=== PATIENT | male | born 1995 | race Caucasian/White ===

== ENCOUNTER 2025-02-11 19:45 | Emergency (ER) | payer BC, SELFPAY ==
[2025-02-11 19:50] VITALS: BP 138/85; PULSE 95; RESP 16; TEMP 36.4; O2SAT 96; BMI 41.1
--- NOTE | 2025-02-11 20:15 | ED.GENADULT ---
HPI - General Adult General Chief complaint: Unspecified Complaint, Adult Stated complaint: cyst Time Seen by Provider: 02/11/25 19:57 History of Present Illness HPI narrative: Patient is a 29-year-old gentleman who has a history of pilonidal cyst resection 6 years ago who presents with painful lump on the superior aspect of his buttocks. The lump is a somewhat linear and just to the right of midline in the superior gluteal cleft. He has had no systemic symptoms of fevers chills night sweats. He has had no skin breakdown but has a number of acne lesions on his buttocks as well. tried to poke with a pin tonight and was unable to get any drainage. Patient has had luck in the past with hot baths and showers but that has been ineffective. Patient knows that he likely needs antibiotics and surgery consult. Related Data Allergies Allergy/AdvReac Type Severity Reaction Status Date / Time No Known Drug Allergies Allergy Verified 02/11/25 19:56 Review of Systems Status of ROS: Reports: 10 or more systems reviewed and unremarkable except as noted in History and below Exam Narrative: Exam Narrative: EXAM GENERAL: Patient appears comfortable and well. EYES: No scleral icterus. ENT: Tympanic membranes and oropharynx normal. THYROID: no thyroid nodules or thyromegaly. LYMPH: No supraclavicular or cervical lymphadenopathy. SKIN: I do note a 3 x 6 cm area of induration as described above in the right gluteal cleft. EXT: No dependent lower extremity pedal edema. HEART: Regular rate and rhythm with no murmurs, rubs, or gallops. LUNGS: Clear to auscultation bilaterally with no crackles or wheezes. ABD: Soft, non tender, non distended. PSYCH: Good eye contact, speech is not pressured. Const: Vital Signs, click to edit/add: Vital Signs - 24 hr 02/11/25 19:50 Temperature 97.5 F L Pulse Rate [Left P ulse Oximeter] 95 Respiratory Rate 16 Blood Pressure [Ri ght Upper Arm] 138/85 Pulse Oximetry 96 Oxygen Delivery Me thod Room Air Course Course ED Course: Patient seen and examined. I did placement Keflex and recommended surgery follow-up this week which will help him schedule. Continue warm compresses in the meantime and follow-up as we discussed. Tylenol Motrin as well. Vital Signs Vital signs: Initial Vital Signs Temperature 97.5 F L 02/11/25 19:50 Temperature Source Temporal Artery Scan 02/11/25 19:50 Pulse Rate 95 02/11/25 19:50 Pulse Rhythm Regular 02/11/25 19:50 Respiratory Rate 16 02/11/25 19:50 Blood Pressure 138/85 02/11/25 19:50 Blood Pressure Mean 102 02/11/25 19:50 Blood Pressure Position Sitting 02/11/25 19:50 Pulse Oximetry 96 02/11/25 19:50 Oxygen Delivery Method Room Air 02/11/25 19:50 Vital Signs Temperature 97.5 F L 02/11/25 19:50 Pulse Rate 95 02/11/25 19:50 Respiratory Rate 16 02/11/25 19:50 Blood Pressure 138/85 02/11/25 19:50 Pulse Oximetry 96 02/11/25 19:50 Oxygen Delivery Method Room Air 02/11/25 19:50 Temperature 97.5 F L 02/11/25 19:50 Pulse Rate 95 02/11/25 19:50 Respiratory Rate 16 02/11/25 19:50 Blood Pressure 138/85 02/11/25 19:50 Pulse Oximetry 96 02/11/25 19:50 Oxygen Delivery Method Room Air 02/11/25 19:50 Discharge Plan Discharge Clinical Impression: Chronic recurrent pilonidal cyst Patient Disposition: Home, Self-Care Condition: Stable Instructions: Pilonidal Cyst (ED) Additional Instructions: Keflex as directed Tylenol Motrin Warm soaks Follow-up with general surgery next week as scheduled. Activity Level: No Restrictions Discharge Diet: Regular Stand Alone Forms: MyHealth Info Instructions
--- OUTSIDE RECORDS SUMMARY | 2025-02-11 20:29 | XMS_ITS | Clinical Summary ---
Author Organization [facility] Address [address] [place] [address]. 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 05/28/2020 Pilonidal abscess 05/16/2019 Overview (03/25/2021): Added automatically from request for surgery [id number] Immunizations Immunization Administration Dates Next Due COVID-19 MONOVALENT 12+ (Pfizer) 04/12/2021,02/26 Comvax (HIB/HepB) 1998,03/09/1998,01/08/19 98 DTAP (<7y) 12/28/2001, 9,05/08/1998,1997,01/08/1998 HIB (PRP-T) 1998,03/09/1998,01/08/1998 HPV9 (Gardasil) 04/26/2021 Hepatitis B, Peds (Engerix-B/Recombivax HB) 1998,03/09/1998,01/08/1998 Influenza Vaccine >6 months,quad, PF 04/20/2019 MMR (MMRII) 05/05/2002,1998 Poliovirus, inactivated (IPV) 12/28/2001 ,1998,03/09/1998,1997 TD,PF 7+ (Tenivac) 03/25/2021 TDAP (Adacel,Boostrix) 03/13/2010 Varicella (Varivax) 03/13/2010,02/07/1999 Family History Medical History Relation Comments Mental Illness Brother Schizophrenia Brother Arthritis Father Relation Status Comments Brother Father Social History Tobacco Use Types Packs/Day Years Used Date Smoking Tobacco: Never Smokeless Tobacco: Never Tobacco Cessation:Counseling Given: No Alcohol Use Standard Drinks/Week Comments Yes 0 (1 standard drink = 0.6 oz pur e alcohol) socail PHQ-2 Answer Date Recorded PHQ-2 Score 0 03/25/2021 Adolescent Education Answer Date Record ed Getting School Help Needed Not on file 04/18 Sex and Gender Information Value Date Recorded Sex Assigned at Male 02/22/2021 3:15 PM CDT Legal Sex Male 2:52 PM MASTER MERCHANDISER Gender Identity Male 02/22/2021 3:15 PM CDT Sexual Orientation Choose not to disclose 2020 3:15 PM CDT Last Filed Vital Signs Vital Sign Reading Time Taken Comments Blood Pressure 118/71 06/10/2021 8:45 AM MASTER MERCHANDISER Pulse 80 06/10/2021 8:45 AM MASTER MERCHANDISER Temperature 36.3 C (97.4 F) 12/03/2020 5:57 PM CDT Respiratory Rate - - Oxygen Saturation 99% 06/10/2021 8:45 AM MASTER MERCHANDISER Inhaled Oxygen Concentration - - Weight 121.8 kg (268 lb 8 oz) 03/25/2021 10:05 A M CDT Height 182.9 cm (6') 03/25/2021 10:05 AM CDT Body Mass Index 36.42 03/25/2021 10:05 AM CDT Plan of Treatment Health Maintenance Due Date Last Done Comments ADVANCE CARE PLANNING 1997 HPV VACCINE (2 - Male 3-dose series) 05/24/2021 04/26/2021 ANNUAL REVIEW OF HM ORDERS 03/25/2022 03/25/2021 YEARLY PREVENTIVE VISIT 03/25/2022 03/25/2021 COVID-19 VACCINE (3 - season) 2024 04/12/2021, 03/25/2021 INFLUENZA VACCINE (#1) 2025 04/20/2019 DTAP/TDAP/TD VACCINE (8 - Td or Tdap) 03/25/2031 03/25/2021, 03/13/2010, 12/28/2001, Additional history exists ZOSTER VACCINE (1 of 2) 11/07/2047 HEPATITIS B VACCINE Completed 1998, 1998, 03/09/1998, Additional history exists HEPATITIS C SCREENING Completed 05/06/2021 HIV SCREENING Completed 05/06/2021 MENINGITIS VACCINE Aged Out No longer eligible based on patient's age to complete this topic PNEUMOCOCCAL VACCINE: PEDIATRICS (0 to 5 YEARS) AND AT-RISK PATIENTS (6 to 49 YEARS) Aged Out No longer eligible based on patient's age to complete this topic Procedures Procedure Name Priority Date/Time Associated Diagnosis Comments HIV ANTIGEN ANTIBODY COMBO Routine 05/06/2021 8:16 AM CDT Screen for STD (sexually transmitted disease) HEPATITIS C ANTIBODY Routine 05/06/2021 8:15 AM CDT Screen for STD (sexually transmitted disease) from Last 3 Months or Most Recently Relevant to Health Maintenance Results * HIV Antigen Antibody Combo (05/06/2021 8:16 AM CDT) HIV Antigen Antibody Combo Negative Negative 05/06/2021 3:59 PM CDT [facility] Blood STRUCTURE OF LEFT UPPER LIMB / Unknown Venipuncture / Unknown 05/06/2021 8:16 AM CDT 05/06/2021 8:16 AM CDT us La Romero MD LAB - BLOOD ORDERABLES Final R esult O [facility] [address] [place] [address], [facility] [phone] * Hepatitis C antibody (05/06/2021 8:15 AM CDT) Hepatitis C Antibody Negative Negative 05/06/2021 4:11 PM CDT [facility] Blood STRUCTURE OF LEFT UPPER LIMB / Unknown Venipuncture / Unknown 05/06/2021 8:15 AM CDT 05/06/2021 8:16 AM CDT Narrative [facility] - 05/06/2021 4:11 PM CDT Assay performance characteristics have not been established for newborns, infants, children (<18 years) or populations of immunocompromised or immunosuppressed patients. La Romero MD LAB - BLOOD ORDERABLES Final R esult [facility] [address] [place] [address], [facility] [phone] from Last 3 Months or Most Recently Relevant to Health Maintenance Insurance [facility] Care Teams Snuff Blender Relationship Specialty Start Date End Date La Romero MD [address] [place] [address] PCP - General Internal Medicine 03/25/21 La Romero MD [address] [place] [address] Referring Physician Internal Medicine 03/28/21 Destini Gaytan PA-C [address] [place] [address] [place] [address] Physician Assistant Maintenance Manager Dermatology 03/28/21 Juvenal Pierre MD [address] [place] [address] Dermatology 05/12/22
--- OUTSIDE RECORDS SUMMARY | 2025-02-11 20:29 | XMS_ITS | Encounter Summary ---
Author Organization [facility] Address [address] [place] [address]. [place] [address] Care Team Providers Care Cap Cutter Name Role Phone La Romero MD Primary Care Provider [phone] La Romero MD Unavailable [phone] Destini Gaytan PA-C Unavailable [phone] La Romero MD Unavailable [phone] Juvenal Pierre MD Unavailable La Romero MD Unavailable [phone] Encounter Details Date Type Department Care Team (Late st Contact Info) Description 06/11/2021 MyC Medical Advice [address] [address] Destini Gaytan PA-C [address] [facility] [place] [address] Social History Tobacco Use Types Packs/Day Years Used Date Smoking Tobacco: Never Smokeless Tobacco: Never Alcohol Use Standard Drinks/Week Comments Yes 0 (1 standard drink = 0.6 oz pur e alcohol) socail PHQ-2 Answer Date Recorded PHQ-2 Score 0 03/25/2021 Sex and Gender Information Value Date Recorded Sex Assigned at Male 02/22/2021 3:15 PM CDT Legal Sex Male 2:52 PM AUDIO ENGINEER Gender Identity Male 02/22/2021 3:15 PM CDT Sexual Orientation Choose not to disclose 2020 3:15 PM CDT COVID-19 Exposure Response Date Recorded In the last month, have you been in contact with someone who was confirmed or suspected to have Coronavirus / COVID-19? No / Unsure 06/10/2021 8:43 AM AUDIO ENGINEER documented as of this encounter Plan of Treatment Not on file documented as of this encounter Visit Diagnoses Not on filedocumented in this encounter Care Teams Cap Cutter Relationship Specialty [place] [address] [place] [address] PCP - General Internal Medicine 03/25/21 [place] [address] [place] [address] Referring Physician Internal Medicine 03/28/21 Destini Gaytan PA-C [address] [place] [address] [place] [address] Physician Sight Effects Specialist Dermatology 03/28/21 [place] [address] [place] [address] Assigned PCP 02/28/21 07/11/22 Juvenal Pierre MD [address] [place] [address] Dermatology 05/12/22 [place] [address] [place] [address] Assigned PCP 09/20/22 06/17/24 documented as of this encounter
--- OUTSIDE RECORDS SUMMARY | 2025-02-11 20:29 | XMS_ITS | Encounter Summary ---
Author Organization [facility] Address [address] [place] [address] Care Team Providers Care Metal Finisher Name Role Phone No Primary/Referring, Phy Primary Care Provider Unavailable Encounter Details Date Type Department Care Team (Late st Contact Info) Description 05/17/2019 Consent for Procedure/Treatme nt [facility] INFORMED CONSENT RECORD Social History Tobacco Use Types Packs/Day Years Used Date Smoking Tobacco: Never Smokeless Tobacco: Never Alcohol Use Standard Drinks/Week Comments Yes 0 (1 standard drink = 0.6 oz pur e alcohol) social Sex and Gender Information Value Date Recorded Sex Assigned at Not on file Legal Sex Male 2:32 PM CDT Gender Identity Not on file Sexual Orientation Not on file 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
--- OUTSIDE RECORDS SUMMARY | 2025-02-11 20:29 | XMS_ITS | Encounter Summary ---
Author Organization [facility] Address [address] [place] [address] Care Team Providers Care Cardiac Rn Name Role Phone No Primary/Referring, Phy Primary Care Provider Unavailable Encounter Details Date Type Department Care Team (Late st Contact Info) Description 10/21/2017 Scanned History External to Transferred Record, Provider [facility] Social History Tobacco Use Types Packs/Day Years Used Date Smoking Tobacco: Never Assessed Sex and Gender Information Value Date Recorded Sex Assigned at Not on file Legal Sex Male 2:32 PM CDT Gender Identity Not on file Sexual Orientation Not on file documented as of this encounter Plan of Treatment Not on file documented as of this encounter Visit Diagnoses Not on filedocumented in this encounter Care Teams Cardiac Rn Relationship Specialty Start Date End Date No Primary/Referring, Phy PCP - General 05/16/19 documented as of this encounter
--- OUTSIDE RECORDS SUMMARY | 2025-02-11 20:29 | XMS_ITS | Clinical Summary ---
Author Organization [facility] Address [address] [place] [address] Care Team Providers Care Wool Cleaner Name Role Phone No Primary/Referring, Phy Primary Care Provider Unavailable Source Comments You are receiving this document as you are listed as the primary care provider,follow-up provider, or the patient has been referred to you for consultation.This is in compliance with the Medicare and[facility] EHR Incentive Program,which states Providers who transition their patient to another setting of careor provider of care or refers their patient to another provider of care shouldprovide summary care record for each transition of care or referral. [email or web address] Allergies No known active allergies Medications FLUoxetine (PROZAC) 40 MG capsule Take 1 Capsule by mouth daily for 60 days. 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 05/28/2020 Pilonidal abscess 05/16/2019 Overview (05/17/2019): Added automatically from request for surgery [id number] Immunizations Immunization Administration Dates Next Due DTaP 12/28/2001, 9,05/08/1998,1997,01/08/1998 HepB Ped/Adol (0-18 yrs) 1998,03/09/1998,0 01/08/1998 Hib (ActHIB) 1998,03/09/1998,01/08/1998 IPV (Polio) 12/28/2001, 9,03/09/1998,1997 Influenza IIV4 (Quadrivalent ) 0.5mL ([id number]) 04/20/2019 MMR 05/05/2002,1998 Tdap 03/13/2010 Varicella 03/13/2010,02/07/1999 Family History Relation Name Status Comments Father Alive Mother Alive Brother 1 Alive Brother 2 Alive Maternal Grandfather Alive Maternal Grandmother Alive Paternal Grandfather Alive Paternal Grandmother Alive Social History Tobacco Use Types Packs/Day Years [...] 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 Not on file Not on file Last Filed Vital Signs Vital Sign Reading Time Taken Comments Blood Pressure 134/89 06/15/2019 12:51 PM ARTIST COLOR SEPARATION Pulse 77 06/15/2019 12:51 PM ARTIST COLOR SEPARATION Temperature 36.8 C (98.3 F) 06/15/2019 12:51 PM ARTIST COLOR SEPARATION Respiratory Rate 16 05/17/2019 4:00 PM CDT Oxygen Saturation 97% 05/17/2019 4:00 PM CDT Inhaled Oxygen Concentration - - Weight 113.3 kg (249 lb 12.8 oz) 05/17/2019 5:39 AM CDT Height 182.9 cm (6') 05/17/2019 5:39 AM CDT Body Mass Index 33.88 05/17/2019 5:39 AM CDT Plan of Treatment Health Maintenance Due Date Last Done Comments Hep C Screening (Preventive Services) 1997 HIV Screening (Preventive Services) 2013 Adult Preventive Visit 04/20/2021 04/20/2019 COVID-19 Vaccine ( season) 2024 03/25/2021 Influenza Vaccine (#1) 2025 04/20/2019 DTaP/Tdap/Td Vaccine (8 - Tdap) 03/25/2031 03/25/2021, 03/13/2010, 12/28/2001, Additional history exists Zoster/Shingles Vaccine (1 of 2) 11/07/2047 HepB Vaccine Completed 1998, 02/24, 01/08/1998 Hib Vaccine Completed 1998, 02/24, 01/08/1998 IPV (Polio) Vaccine Completed 12/28/2001, 1998, 03/09/1998, Additional history exists Varicella Vaccine Completed 03/13/2010, 02/07/1999 HPV Vaccine Aged Out No longer eligi ble based on patient's age to complete this topic HepA Vaccine Aged Out No longer eligi ble based on patient's age to complete this topic MCV4 Vaccine Aged Out No longer eligi ble based on patient's age to complete this topic Meningococcal B Vaccine Aged Out No l onger eligible based on patient's age to complete this topic Pneumococcal Vaccine Aged Out No long er eligible based on patient's age to complete this topic Insurance * Guarantor: Henrique Macario Account Type Relation to Patient Date of Phone Billing Address Personal/Family Self 1995 [address]ED [address] [id number] [place] [address] MEDICA CHOICE Advance Directives * Full Code (Latest Code Status on File) Date Activated Date Inactivated Comments 05/17/2019 5:49 AM 05/17/2019 8:54 PM Care Teams Wool Cleaner Relationship Specialty Start Date End Date No Primary/Referring, Phy PCP - General 05/16/19
--- OUTSIDE RECORDS SUMMARY | 2025-02-11 20:29 | XMS_ITS | Encounter Summary ---
Author Organization [place] Address [address] [place] [address] Care Team Providers Care Maintenance Advisor Name Role Phone La Romero MD Primary Care Provider [phone] La Romero MD Unavailable [phone] Destini Gaytan PA-C Unavailable La Romero MD Unavailable [phone] Juvenal Pierre MD Unavailable La Romero MD Unavailable [phone] Encounter Details Date Type Department Care Team (Late st Contact Info) Description 05/17/2021 MyC Medical Advice [facility] [address] [place] [address] La Romero MD [address] [place], [place] [id number] Social History Tobacco Use Types Packs/Day Years Used Date Smoking Tobacco: Never Smokeless Tobacco: Never Alcohol Use Standard Drinks/Week Comments Yes 0 (1 standard drink = 0.6 oz pur e alcohol) socail PHQ-2 Answer Date Recorded PHQ-2 Score 0 03/25/2021 Sex and Gender Information Value Date Recorded Sex Assigned at Male 02/22/2021 3:15 PM CDT Legal Sex Male 2:52 PM TIE MAN Gender Identity Male 02/22/2021 3:15 PM CDT Sexual Orientation Choose not to disclose 2020 3:15 PM CDT COVID-19 Exposure Response Date Recorded In the last month, have you been in contact with someone who was confirmed or suspected to have Coronavirus / COVID-19? No / Unsure 05/06/2021 8:10 AM CDT documented as of this encounter Plan of Treatment Not on file documented as of this encounter Visit Diagnoses Not on filedocumented in this encounter Care Teams Maintenance Advisor Relationship Specialty [place] [address] [place] [address] PCP - General Internal Medicine 03/25/21 La Romero MD [address] [place] [address] Referring Physician Internal Medicine 03/28/21 Destini Gaytan PA-C [address] [place] [address] [place] [address] Physician Assistant Program Director Dermatology 03/28/21 [place] [address] [place] [address] Assigned PCP 02/28/21 07/11/22 Juvenal Pierre MD [address] [place] [address] Dermatology 05/12/22 [place] [address] [place] [address] Assigned PCP 09/20/22 06/17/24 documented as of this encounter
--- OUTSIDE RECORDS SUMMARY | 2025-02-11 20:29 | XMS_ITS | Encounter Summary ---
Author Organization [facility] Address [address] [place] [address] Care Team Providers Care Barrel Header Name Role Phone No Ref-Primary, Physician Primary Care Provider La Romero MD Primary Care Provider [phone] La Romero MD Unavailable [phone] Destini Gaytan PA-C Unavailable La Romero MD Unavailable [phone] Juvenal Pierre MD Unavailable La Romero MD Unavailable [phone] Encounter Details Date Type Department Care Team (Late st Contact Info) Description 02/22/2021 MyC Medical Advice [address] [address] Destini Gaytan PA-C [address] [place] [address] [place] [address] Social History Tobacco Use Types Packs/Day Years Used Date Smoking Tobacco: Never Smokeless Tobacco: Never Sex and Gender Information Value Date Recorded Sex Assigned at Male 02/22/2021 3:15 PM CDT Legal Sex Male 2:52 PM LITHOPONE CHARGER Gender Identity Male 02/22/2021 3:15 PM CDT Sexual Orientation Choose not to disclose 2020 3:15 PM CDT documented as of this encounter Miscellaneous Notes * Telephone Encounter - Destini Gaytan PA-C - 02/25/2021 2:44 PM CDT Yes, wide. Please discuss: The extent of scar( 3x size of current lesion), wound care, activity restriction, complications, and healing time. * Telephone Encounter - Ana Rosa Escamilla RN - 02/25/2021 7:23 AM CDT Please see mychart message and advise. Does he need a wide excision? Thank you, Maria M Huff RN BSN [facility] [phone] documented in this encounter Plan of Treatment Not on file documented as of this encounter Visit Diagnoses Not on filedocumented in this encounter Care Teams Barrel Header Relationship Specialty Start Date End Date No Ref-Primary, Physician PCP - General 09/23/20 03/24/21 La Romero MD [address] [place] [address] PCP - General Internal Medicine 03/25/21 La Romero MD [address] [place] [address] Referring Physician Internal Medicine 03/28/21 Destini Gaytan PA-C [address] [place] [address] [place] [address] Physician Architectural Examiner Dermatology 03/28/21 La Romero MD [address] [place] [address] Assigned PCP 02/28/21 07/11/22 Juvenal Pierre MD [address] [place] [address] MD Ramirez 05/12/22 La Romero MD [address] [place] [address] Assigned PCP 09/20/22 06/17/24 documented as of this encounter
--- OUTSIDE RECORDS SUMMARY | 2025-02-11 20:29 | XMS_ITS | Encounter Summary ---
Author Organization [place] Address [address] [place] [address]. [place] [address] Care Team Providers Care Nurse Executive Name Role Phone La Romero MD Primary Care Provider [phone] La Romero MD Unavailable [phone] Destini Gaytan PA-C Unavailable [phone] La Romero MD Unavailable [phone] Juvenal Pierre MD Unavailable La Romero MD Unavailable [phone] Encounter Details Date Type Department Care Team (Late st Contact Info) Description 07/15/2021 MyC Medical Advice [address] [address] Destini Gaytan PA-C [address] [facility] [place] [address] Social History Tobacco Use Types Packs/Day Years Used Date Smoking Tobacco: Never Smokeless Tobacco: Never Alcohol Use Standard Drinks/Week Comments Yes 0 (1 standard drink = 0.6 oz pur e alcohol) socail PHQ-2 Answer Date Recorded PHQ-2 Score 0 03/25/2021 Sex and Gender Information Value Date Recorded Sex Assigned at Male 02/22/2021 3:15 PM CDT Legal Sex Male 2:52 PM PROFESSOR OF OCEANOGRAPHY Gender Identity Male 02/22/2021 3:15 PM CDT Sexual Orientation Choose not to disclose 2020 3:15 PM CDT documented as of this encounter Miscellaneous Notes * Telephone Encounter - Ana Rosa Escamilla RN - 07/22/2021 11:03 AM PROFESSOR OF OCEANOGRAPHY Left message on answering machine for patient to call back or check mychart message. Maria M HuffSUPERVISOR [facility]- Milena Hampton [phone] ESSOR OF OCEANOGRAPHY * Telephone Encounter - Destini Gaytan PA-C - 07/22/2021 10:53 AM PROFESSOR OF OCEANOGRAPHY Rx for accutane sent Pt confirmed in ipledge Please follow up in 30 days. ESSOR OF OCEANOGRAPHY documented in this encounter Plan of Treatment Not on file documented as of this encounter Visit Diagnoses Not on filedocumented in this encounter Care Teams Nurse Executive Relationship Specialty Start Date End Date La Romero MD [address] [place] [address] PCP - General Internal Medicine 03/25/21 La Romero MD [address] [place] [address] Referring Physician Internal Medicine 03/28/21 Destini Gaytan PA-C [address] [place] [address] [place] [address] Physician Flight Dynamicist Dermatology 03/28/21 La Romero MD [address] [place] [address] Assigned PCP 02/28/21 07/11/22 Juvenal Pierre MD [address] [place] [address] Dermatology 05/12/22 La Romero MD [address] [place] [address] Assigned PCP 09/20/22 06/17/24 documented as of this encounter
--- OUTSIDE RECORDS SUMMARY | 2025-02-11 20:29 | XMS_ITS | Encounter Summary ---
Author Organization [place] Address [address] [place] [address] Care Team Providers Care Renal Dialysis Technician Name Role Phone La Romero MD Primary Care Provider [phone] La Romero MD Unavailable [phone] Destini Gaytan PA-C Unavailable La Romero MD Unavailable [phone] Juvenal Pierre MD Unavailable La Romero MD Unavailable [phone] Encounter Details Date Type Department Care Team (Late st Contact Info) Description 02/11/2022 MyC Medical Advice [facility] [address] [place] [address] La Romero MD [address] [place], [place] [id number] Social History Tobacco Use Types Packs/Day Years Used Date Smoking Tobacco: Never Smokeless Tobacco: Never Alcohol Use Standard Drinks/Week Comments Yes 0 (1 standard drink = 0.6 oz pur e alcohol) socail PHQ-2 Answer Date Recorded PHQ-2 Score 0 03/25/2021 Sex and Gender Information Value Date Recorded Sex Assigned at Male 02/22/2021 3:15 PM CDT Legal Sex Male 2:52 PM STATISTICAL ENGINEER Gender Identity Male 02/22/2021 3:15 PM CDT Sexual Orientation Choose not to disclose 2020 3:15 PM CDT documented as of this encounter Plan of Treatment Not on file documented as of this encounter Visit Diagnoses Not on filedocumented in this encounter Care Teams Renal Dialysis Technician Relationship Specialty Start Date End Date La Romero MD [address] [place] [address] PCP - General Internal Medicine 03/25/21 La Romero MD [address] [place] [address] Referring Physician Internal Medicine 03/28/21 Destini Gyatan PA-C [address] [place] [address] [place] [address] Physician Customs Verifier Dermatology 03/28/21 La Romero MD [address] [place] [address] Assigned PCP 02/28/21 07/11/22 Juvenal Pierre MD [address] [place] [address] Dermatology 05/12/22 [place] [address] [place] [address] Assigned PCP 09/20/22 06/17/24 documented as of this encounter
== END 2025-02-11 20:33 | disposition home or self-care (01) ==
LOC: ED 20:27
PROVIDERS: Emergency Provider Internal Medicine
DX: L05.91 Pilonidal cyst without abscess (principal)
CPT/HCPCS: 99283

== ENCOUNTER 2025-06-19 08:44 | Emergency (ER) | payer BC, SELFPAY ==
[2025-06-19] VITALS (13 sets, daily range): BP systolic 91–118; BP diastolic 70–82; PULSE 93–122; RESP 9–21; TEMP 35.9–36.4; O2SAT 83–98; BMI 39.1
--- OUTSIDE RECORDS SUMMARY | 2025-06-19 08:48 | XMS_ITS | Encounter Summary ---
Author Organization [place] Address [address] [place] [address] Care Team Providers Care Carbonation Equipment Tender Name Role Phone La Romero MD Primary Care Provider [phone] La Romero MD Unavailable [phone] Destini Gaytan PA-C Unavailable La Romero MD Unavailable [phone] Juvenal Pierre MD Unavailable La Romero MD Unavailable [phone] Encounter Details Date Type Department Care Team (Late st Contact Info) Description 02/11/2022 MyC Medical Advice [facility] [address] [place] [address] La Romero MD [address] [place], [place] [id number] Social History Tobacco Use Types Packs/Day Years Used Date Smoking Tobacco: Never Smokeless Tobacco: Never Alcohol Use Standard Drinks/Week Comments Yes 0 (1 standard drink = 0.6 oz pur e alcohol) socail PHQ-2 Answer Date Recorded PHQ-2 Score 0 03/25/2021 Sex and Gender Information Value Date Recorded Sex Assigned at Male 02/22/2021 3:15 PM CDT Legal Sex Male 2:52 PM COMPRESSOR STATION OPERATOR Gender Identity Male 02/22/2021 3:15 PM CDT Sexual Orientation Choose not to disclose 2020 3:15 PM CDT documented as of this encounter Plan of Treatment Not on file documented as of this encounter Visit Diagnoses Not on filedocumented in this encounter Care Teams Carbonation Equipment Tender Relationship Specialty Start Date End Date La Romero MD [address] [place] [address] PCP - General Internal Medicine 03/25/21 La Romero MD [address] [place] [address] Referring Physician Internal Medicine 03/28/21 Destini Gaytan PA-C [address] [place] [address] [place] [address]feree Dermatology 03/28/21 La Romero MD [address] [place] [address] Assigned PCP 02/28/21 07/11/22 Juvenal Pierre MD [address] [place] [address] Dermatology 05/12/22 [place] [address] [place] [address] Assigned PCP 09/20/22 06/17/24 documented as of this encounter
--- OUTSIDE RECORDS SUMMARY | 2025-06-19 08:48 | XMS_ITS | Clinical Summary ---
Author Organization [facility] Address [address] [place] [address] Care Team Providers Care Grain Drier Operator Name Role Phone No Primary/Referring, Phy Primary Care Provider Unavailable Source Comments You are receiving this document as you are listed as the primary care provider,follow-up provider, or the patient has been referred to you for consultation.This is in compliance with the Medicare and[facility] EHR Incentive Program,which states Providers who transition their patient to another setting of careor provider of care or refers their patient to another provider of care shouldprovide summary care record for each transition of care or referral. [employer] Allergies No known active allergies Medications FLUoxetine (PROZAC) 40 MG capsule Take 1 Capsule by mouth daily for 60 days. 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 05/28/2020 Pilonidal abscess 05/16/2019 Overview (05/17/2019): Added automatically from request for surgery [id number] Immunizations Immunization Administration Dates Next Due DTaP 12/28/2001, 9,05/08/1998,1997,01/08/1998 HepB Ped/Adol (0-18 yrs) 1998,03/09/1998,0 01/08/1998 Hib (ActHIB) 1998,03/09/1998,01/08/1998 IPV (Polio) 12/28/2001, 9,03/09/1998,1997 Influenza IIV4 (Quadrivalent ) 0.5mL (69518) 04/20/2019 MMR 05/05/2002,1998 Tdap 03/13/2010 Varicella 03/13/2010,02/07/1999 [...] 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 Not on file Not on file Last Filed Vital Signs Vital Sign Reading Time Taken Comments Blood Pressure 134/89 06/15/2019 12:51 PM GREASE REFINER OPERATOR Pulse 77 06/15/2019 12:51 PM GREASE REFINER OPERATOR Temperature 36.8 C (98.3 F) 06/15/2019 12:51 PM GREASE REFINER OPERATOR Respiratory Rate 16 05/17/2019 4:00 PM CDT [...] Services) 2013 Adult Preventive Visit 04/20/2021 04/20/2019 HPV Vaccine (1 - 3-dose SCDM series) 2024 COVID-19 Vaccine ( season) 2025 03/25/2021 Influenza Vaccine (#1) 2025 04/20/2019 DTaP/Tdap/Td Vaccine (8 - Tdap) 03/25/2031 03/25/2021, 03/13/2010, 12/28/2001, Additional history exists Zoster/Shingles Vaccine (1 of 2) 11/07/2047 HepB Vaccine Completed 1998, 02/24, 01/08/1998 Hib Vaccine Completed 1998, 02/24, 01/08/1998 IPV (Polio) Vaccine Completed 12/28/2001, 1998, 03/09/1998, Additional history exists Varicella Vaccine Completed 03/13/2010, 02/07/1999 HepA Vaccine Aged Out No longer eligi [...] Billing Address Personal/Family Self 1995 RETURNED [address] [id number] [place] [address] MEDICA CHOICE Advance Directives * Full Code (Latest Code Status on File) Date Activated Date Inactivated Comments 05/17/2019 5:49 AM 05/17/2019 8:54 PM Care Teams Grain Drier Operator Relationship Specialty Start Date End Date No Primary/Referring, Phy PCP - General 05/16/19
--- OUTSIDE RECORDS SUMMARY | 2025-06-19 08:48 | XMS_ITS | Clinical Summary ---
Author Organization [place] Address [address] [place] [address]. 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 05/28/2020 Pilonidal abscess 05/16/2019 Overview (03/25/2021): Added automatically from request for surgery [id number] Immunizations Immunization Administration Dates Next Due COVID-19 [...] PM CDT Legal Sex Male 2:52 PM PUBLIC MESSAGE SERVICE SUPERVISOR Gender Identity Male 02/22/2021 3:15 PM CDT Sexual Orientation Choose not to disclose 2020 3:15 PM CDT Last Filed Vital Signs Vital Sign Reading Time Taken Comments Blood Pressure 118/71 06/10/2021 8:45 AM PUBLIC MESSAGE SERVICE SUPERVISOR Pulse 80 06/10/2021 8:45 AM PUBLIC MESSAGE SERVICE SUPERVISOR Temperature 36.3 C (97.4 F) 12/03/2020 5:57 PM CDT Respiratory Rate - - Oxygen Saturation 99% 06/10/2021 8:45 AM PUBLIC MESSAGE SERVICE SUPERVISOR Inhaled Oxygen Concentration - - Weight 121.8 kg (268 lb 8 oz) 03/25/2021 10:05 A M CDT Height 182.9 cm (6') 03/25/2021 10:05 AM CDT Body Mass Index 36.42 03/25/2021 10:05 AM CDT Plan of Treatment Not on file Insurance [facility] Care Teams Tile And Marble Installer Relationship Specialty Start Date End Date La Romero MD [address] [place] [address] PCP - General Internal Medicine 03/25/21 La Romero MD [address] [place] [address] Referring Physician Internal Medicine 03/28/21 Destini Gaytan PA-C [address] [place] [address] [place] [address] Physician Alligator Hunter Dermatology 03/28/21 Juvenal Pierre MD [address] [place] [address] Dermatology 05/12/22
--- OUTSIDE RECORDS SUMMARY | 2025-06-19 08:48 | XMS_ITS | Encounter Summary ---
Author Organization [facility] Address [address] [place] [address] Care Team Providers Care Fibre Cement Moulder Name Role Phone No Ref-Primary, Physician Primary Care Provider La Romero MD Primary Care Provider [phone] La Romero MD Unavailable [phone] Destini Gaytan PA-C Unavailable [phone] La Romero MD Unavailable [phone] Juvenal Pierre MD Unavailable La Romero MD Unavailable [phone] Encounter Details Date Type Department Care Team (Late st Contact Info) Description 02/22/2021 MyC Medical Advice [address] [address] Destini Gaytan PA-C [address] [place] [address] [place] [address] Social History Tobacco Use Types Packs/Day Years Used Date Smoking Tobacco: Never Smokeless Tobacco: Never Sex and Gender Information Value Date Recorded Sex Assigned at Male 02/22/2021 3:15 PM CDT Legal Sex Male 2:52 PM CAMP TENDER Gender Identity Male 02/22/2021 3:15 PM CDT [...] Thank you, Maria M Huff RN BSN [facility] [phone] documented in this encounter Plan of Treatment Not on file documented as of this encounter Visit Diagnoses Not on filedocumented in this encounter Care Teams Fibre Cement Moulder Relationship Specialty Start Date End Date No Ref-Primary, Physician PCP - General 09/23/20 03/24/21 La Romero MD [address] [place] [address] PCP - General Internal Medicine 03/25/21 La Romero MD [address] [place] [address] Referring Physician Internal Medicine 03/28/21 Destini Gaytan PA-C [address] [place] [address] [place] [address] Physician Nurse First Aid Dermatology 03/28/21 La Romero MD [address] [place] [address] Assigned PCP 02/28/21 07/11/22 Juvenal Pierre MD [address] [place] [address] MD Ramirez 05/12/22 La Romero MD [address] [place] [address] Assigned PCP 09/20/22 06/17/24 documented as of this encounter
--- OUTSIDE RECORDS SUMMARY | 2025-06-19 08:48 | XMS_ITS | Encounter Summary ---
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
--- OUTSIDE RECORDS SUMMARY | 2025-06-19 08:48 | XMS_ITS | Encounter Summary ---
Author Organization [place] Address [address] [place] [address]. [place] [address] Care Team Providers Care Hull Molder Name Role Phone La Romero MD Primary Care Provider [phone] La Romero MD Unavailable [phone] Destini Gaytan PA-C Unavailable [phone] La Romero MD Unavailable [phone] Juvenal Pierre MD Unavailable La Romero MD Unavailable [phone] Encounter Details Date Type Department Care Team (Late st Contact Info) Description 06/11/2021 MyC Medical Advice [address] [address] Destini Gaytan PA-C 2 [facility] [place] [address] Social History Tobacco Use Types Packs/Day Years Used Date Smoking Tobacco: Never Smokeless Tobacco: Never Alcohol Use Standard Drinks/Week Comments Yes 0 (1 standard drink = 0.6 oz pur e alcohol) socail PHQ-2 Answer Date Recorded PHQ-2 Score 0 03/25/2021 Sex and Gender Information Value Date Recorded Sex Assigned at Male 02/22/2021 3:15 PM CDT Legal Sex Male 2:52 PM BUTTON GRADER Gender Identity Male 02/22/2021 3:15 PM CDT Sexual Orientation Choose not to disclose 2020 3:15 PM CDT COVID-19 Exposure Response Date Recorded In the last month, have you been in contact with someone who was confirmed or suspected to have Coronavirus / COVID-19? No / Unsure 06/10/2021 8:43 AM BUTTON GRADER documented as of this encounter Plan of Treatment Not on file documented as of this encounter Visit Diagnoses Not on filedocumented in this encounter Care Teams Hull Molder Relationship Specialty [place] [address] [place] [address] PCP - General Internal Medicine 03/25/21 [place] [address] [place] [address] Referring Physician Internal Medicine 03/28/21 Destini Gaytan PA-C [address] [place] [address] [place] [address] Physician Polysom Tech Dermatology 03/28/21 [place] [address] [place] [address] Assigned PCP 02/28/21 07/11/22 Juvenal Pierre MD [address] [place] [address] Dermatology 05/12/22 [place] [address] [place] [address] Assigned PCP 09/20/22 06/17/24 documented as of this encounter
--- OUTSIDE RECORDS SUMMARY | 2025-06-19 08:48 | XMS_ITS | Encounter Summary ---
Author Organization [facility] Address [address] [place] [address] Care Team Providers Care Spinning Room Worker Name Role Phone La Romero MD Primary Care Provider [phone] La Romero MD Unavailable [phone] Destini Gaytan PA-C Unavailable La Romero MD Unavailable [phone] Juvenal Pierre MD Unavailable La Romero MD Unavailable [phone] Encounter Details Date Type Department Care Team (Late st Contact Info) Description 05/17/2021 MyC Medical Advice [facility] [address] [place] [address] La Romero MD [address] [place], [place] [id number] Social History Tobacco Use Types Packs/Day Years Used Date Smoking Tobacco: Never Smokeless Tobacco: Never Alcohol Use Standard Drinks/Week Comments Yes 0 (1 standard drink = 0.6 oz pur e alcohol) socail PHQ-2 Answer Date Recorded PHQ-2 Score 0 03/25/2021 Sex and Gender Information Value Date Recorded Sex Assigned at Male 02/22/2021 3:15 PM CDT Legal Sex Male 2:52 PM ACID RECOVERY OPERATOR Gender Identity Male 02/22/2021 3:15 PM [...] on filedocumented in this encounter Care Teams Spinning Room Worker Relationship Specialty [place] [address] [place] [address] PCP - General Internal Medicine 03/25/21 La Romero MD [address] [place] [address] Referring Physician Internal Medicine 03/28/21 Destini Gaytan PA-C [address] [place] [address] [place] [address] Physician Supervisor Pressing Department Dermatology 03/28/21 [place] [address] [place] [address] Assigned PCP 02/28/21 07/11/22 Juvenal Pierre MD [address] [place] [address] Dermatology 05/12/22 [place] [address] [place] [address] Assigned PCP 09/20/22 06/17/24 documented as of this encounter
--- OUTSIDE RECORDS SUMMARY | 2025-06-19 08:48 | XMS_ITS | Encounter Summary ---
Author Organization [facility] Address [address] [place] [address]. [place] [address] Care Team Providers Care Water Pump Operator Name Role Phone La Romero MD Primary Care Provider [phone] La Romero MD Unavailable [phone] Destini Gaytan PA-C Unavailable [phone] La Romero MD Unavailable [phone] Juvenal Pierre MD Unavailable La Romero MD Unavailable [phone] Encounter Details Date Type Department Care Team (Late st Contact Info) Description 07/15/2021 MyC Medical Advice [address] [address] Destini Gaytan PA-C [address] [facility] [place] [address] Social History Tobacco Use Types Packs/Day Years Used Date Smoking Tobacco: Never Smokeless Tobacco: Never Alcohol Use Standard Drinks/Week Comments Yes 0 (1 standard drink = 0.6 oz pur e alcohol) socail PHQ-2 Answer Date Recorded PHQ-2 Score 0 03/25/2021 Sex and Gender Information Value Date Recorded Sex Assigned at Male 02/22/2021 3:15 PM CDT Legal Sex Male 2:52 PM HOLIDAY DETECTOR OPERATOR Gender Identity Male 02/22/2021 3:15 PM CDT Sexual Orientation Choose not to disclose 2020 3:15 PM CDT documented as of this encounter Miscellaneous Notes * Telephone Encounter - Ana Rosa Escamilla RN - 07/22/2021 11:03 AM HOLIDAY DETECTOR OPERATOR Left message on answering machine for patient to call back or check mychart message. Maria M HuffSTATE FIRE MAR[facility] Milena Hampton [phone] DAY DETECTOR OPERATOR * Telephone Encounter - Destini Gaytan PA-C - 07/22/2021 10:53 AM HOLIDAY DETECTOR OPERATOR Rx for accutane sent Pt confirmed in ipledge Please follow up in 30 days. DAY DETECTOR OPERATOR documented in this encounter Plan of Treatment Not on file documented as of this encounter Visit Diagnoses Not on filedocumented in this encounter Care Teams Water Pump Operator Relationship Specialty Start Date End Date La Romero MD [address] [place] [address] PCP - General Internal Medicine 03/25/21 La Romero MD [address] [place] [address] Referring Physician Internal Medicine 03/28/21 Destini Gaytan PA-C [address] [place] [address] [place] [address] Physician Warehouse Receiving Supervisor Dermatology 03/28/21 La Romero MD [address] [place] [address] Assigned PCP 02/28/21 07/11/22 Juvenal Pierre MD [address] [place] [address] Dermatology 05/12/22 La Romero MD [address] [place] [address] Assigned PCP 09/20/22 06/17/24 documented as of this encounter
--- OUTSIDE RECORDS SUMMARY | 2025-06-19 08:48 | XMS_ITS | Clinical Summary ---
Author Organization [facility] Address [address] [place] [address] Care Team Providers Care Truck Sales Representative Name Role Phone Pako Parry Primary Care Provider [phone] Unavailable [phone] Jennifer Bear Unavailable Allergies No known active allergies Medications MULTIVITAMIN ORAL Take by mouth. Activ e omega-3 fatty acids/fish oil (FISH OIL OMEGA 3-6-9 ORAL) Take by mouth. Act clinton tirzepatide (weight loss) (Zepbound) 2.5 mg/0.5 mL penIndications: Class 3 severe obesity with body mass index (BMI) of 40.0 to 44.9 in adult, unspecified obesity type, unspecified whether serious comorbidity present (HC) Inject 2.5 mg subcutaneous once weekly. 2 mL 05/03/20 25 Active ketoconazole 2% shampoo (NIZORAL) 2 % shampooIndicati ons:Acne vulgaris Lather on damp scalp, leave on for 5-10 min, then rinse with water. Recommend using 2-3 times weekly. 120 mL 05/17/20 25 Active Zepbound 5 mg/0.5 mL penIndications: Class 3 severe obesity with body mass index (BMI) of 40.0 to 44.9 in adult, unspecified obesity type, unspecified whether serious comorbidity present (HC) Inject 5 mg subcutaneous once weekly. 4 mL 05/29/20 Active ISOtretinoin (ACCUTANE) 40 mg capsuleIndicati ons:Acne vulgaris,High risk medication use Take 1 Capsule (40 mg) by mouth two times daily. 60 Capsule 06/19/20 25 Active ISOtretinoin (ACCUTANE) 40 mg capsuleIndicati ons:Acne vulgaris,High risk medication use Take 1 Capsule (40 mg) by mouth two times daily. 60 Capsule 05/17/20 25 025 Discontin ued(Reord er (E-cancel not sent)) Active Problems Problem Noted Date Diagnosed Date Obesity, unspecified 04/10/2025 Encounters Date Type Department Care Team Description 06/19/2025 Telephone [facility] [address] [address] Wanda Petit MD Results; Medication Management 06/16/2025 1:40 PM RECORD TESTER Office Visit [facility] [address] [address] Wanda Petit MD Derm Problem 06/16/2025 Travel 05/31/2025 2:00 PM RECORD TESTER Telemedicine [facility] [address] [place], [place] [phone] Fernando Martínez RD Medical Nutrition Therapy ([facility] Initial) 05/31/2025 Travel 05/29/2025 9:00 AM RECORD TESTER Telemedicine [facility] [address] [facility] [address] [place], [place] [phone] Jennifer Bear PA Telehealth (No vitals taken ); Consult 05/24/2025 Travel 05/17/2025 1:00 PM CDT Office Visit [facility] [address] [address] Wanda Petit MD Derm Problem 05/17/2025 Travel 05/08/2025 Travel 05/07/2025 Telephone [facility] [address] [place] [address] Pako Parry PA Prior Authorization (tirzepatide (weight loss) (Zepbound) 2.5 mg/0.5 mL pen Approved April 07, 2025 to January 02, 2026) 05/03/2025 10:00 AM CDT Office Visit [address] [address] Pako Parry PA Consult (Wegovy) 05/03/2025 Travel 04/28/2025 Travel 04/18/2025 9:35 AM CDT Office Visit [facility] [address] [place] [address] Viral Bender MD Vasectomy (Consult/) 04/18/2025 Travel 04/07/2025 Orders Only [address] [address] Pako Parry PA <No scans attached> 04/05/2025 8:30 AM CDT Office Visit [facility] [address] [address] Wanda Petit MD Derm Problem 04/04/2025 9:00 AM CDT Office Visit [address] [address] Pako Parry PA Referral (UROLOGY, DERMATOLOGY AND nutritionology ); Physical (fasting) 04/04/2025 Travel from Last 3 Months Immunizations Immunization Administration Dates Next Due DTaP 12/28/2001, 9,05/08/1998,1997,01/08/1998 HIB PRP-T (ActHIB,Hiberix) 1998,03/09/1998 ,01/08/1998 HIB-HepB (Comvax) 1998,03/09/1998,01/08/19 98 HPV 9 (Gardasil 9) 04/26/2021 Hepatitis B (Peds) 1998,03/09/1998, 998 Inactivated Polio Vaccine 12/28/2001,,03/09/1998,1997 Influenza, IIV4 04/20/2019 MMR 05/05/2002,1998 Td, Preservative Free (age > = 7 Years) 03/25/2021 Tdap 03/13/2010 Varicella Vaccine 03/13/2010,02/07/1999 Family History Medical History Relation Name Comments Schizophrenia Brother 1 Lg ADD / ADHD Brother 2 Dmitry Good Health Daughter Second Lumbar disc disease Father along w/ neck surgery Mental illness Maternal Grandfather Stroke Maternal Grandmother Cancer-breast Mother Crystal's thyroiditis Mother Alcoholism Paternal Grandfather No Known Problems Paternal Grandmother Good Health Son 1 Oldest Good Health Son 2 Third Relation Name Status Comments Brother 1 Lg Alive Brother 2 Dmitry Alive Daughter Alive Father Alive Maternal Grandfather Alive Maternal Grandmother Alive Mother Alive Paternal Grandfather Alive Paternal Grandmother Alive Son 1 Alive Son 2 Alive Social History Tobacco Use Types Packs/Day Years Used Date Smoking Tobacco: Never Smokeless Tobacco: Never Tobacco Cessation:Counseling Given: Not Answered PHQ-2 Answer Date Recorded PHQ-2 TOTAL SCORE 0 04/04/2025 Social Connections Answer Date Recorded Do you often feel lonely or isolated from those around you? 0 04/04/2025 Alcohol Use Answer Date Recorded How often do you have a drink containing alcohol ? 1 05/17/2025 How many drinks containing a lcohol do you have on a typical day when you are drinking? 0 05/17/2025 How often do you have five or more drinks on one occasion? 1 05/17/2025 Financial Resource Strain Answer Date R ecorded Difficulty of Paying Living Expenses 3 04/04/2025 Difficulty of Paying Living Expenses Not on file 04/04/2025 Food Insecurity Answer Date Recorded Do you worry your food will run out before you are able to buy more? 1 04/04/2025 Transportation Needs Answer Date Record ed Does lack of transportation keep you from medica l appointments? 1 04/04/2025 Does lack of transportation keep you from work, meetings or getting things that you need? 1 04/04/2025 Housing Stability Answer Date Recorded What is your housing situation today? 1 04/04/2025 Utilities Answer Date Recorded Do you have trouble paying f or utilities (for example, heat, electricity, water, phone)? 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 Not on file Not on leon e Obstetrics History Last Filed Vital Signs Vital Sign Reading Time Taken Comments Blood Pressure 124/80 05/03/2025 10:13 AM CDT Pulse 101 05/03/2025 10:13 AM CDT Temperature - - Respiratory Rate - - Oxygen Saturation 97% 05/03/2025 10:13 AM CDT Inhaled Oxygen Concentration - - Weight 135.2 kg (298 lb) 05/31/2025 2:00 PM RECORD TESTER Height 182.9 cm (6' 0.01) 05/31/2025 2:00 PM CS T Body Mass Index 40.41 05/31/2025 2:00 PM RECORD TESTER Plan of Treatment Upcoming Encounters Date Type Department Care Team (Late st Contact Info) Description 06/30/2025 1:05 PM RECORD TESTER Procedure Only [facility] [address] [place] [address] Viral Bender MD [address] [place] [address] 07/10/2025 9:00 AM RECORD TESTER Telemedicine [facility] [address] [facility] [address] [place], [place] [address] Jennifer Bear PA [address] [place], [place] [address] 07/18/2025 2:30 PM RECORD TESTER Nutrition/H[employer]anger [facility] [address] [place], [place] [address] Fernando Martínez RD [address] [place], [place] [address] 07/18/2025 3:30 PM RECORD TESTER Office Visit [facility] [address] [place] [address] [place], [place] [address] Wanda Petit MD [address] [place] [address] [place] [address] Health Maintenance Due Date Last Done Comments HIV for age 15-65 2012 Hepatitis C screening for age 18-79 11/07/2015 HPV series for age 9-45 (2 - Male 3-dose series) 05/24/2021 04/26/2021 Influenza Vaccine (#1) 2025 04/20/2019 Depression screening for age 12+ 04/04/2026 04/04/2025 BMI (ht and wt on same day) for age 18+ 05/31/2026 05/31/2025, 05/29/2025, 04/04/2025 Tetanus booster 03/25/2031 03/25/2021, 03/13/2010 RSV vaccine for adults or (1 - 1-dose 75+ series) 2072 Hepatitis B series for 19+ Completed 11/06, 1998, 03/09/1998, Additional history exists Pneumococcal series for age 6-49 Aged Out No longer eligible based on patient's age to complete this topic Procedures Procedure Name Priority Date/Time Associated Diagnosis Comments CBC WITH AUTO DIFFERENTIAL Routine 06/16/2025 2:01 PM RECORD TESTER Acne vulgaris High risk medication use CBC WITH AUTO DIFFERENTIAL Routine 06/16/2025 2:01 PM RECORD TESTER Acne vulgaris High risk medication use LIPID PANEL Routine 06/16/2025 2:01 PM RECORD TESTER Acne vulgaris High risk medication use COMP METABOLIC PANEL Routine 06/16/2025 2:01 PM RECORD TESTER Acne vulgaris High risk medication use VITAMIN B12 Routine 06/16/2025 2:01 PM RECORD TESTER Class 3 severe obesity with body mass index (BMI) of 40.0 to 44.9 in adult, unspecified obesity type, unspecified whether serious comorbidity present (HC) TSH WITH REFLEX Routine 06/16/2025 2:01 PM RECORD TESTER Class 3 severe obesity with body mass index (BMI) of 40.0 to 44.9 in adult, unspecified obesity type, unspecified whether serious comorbidity present (HC) VITAMIN D 25 (DEFICIENCY) Routine 06/16/2025 2:01 PM RECORD TESTER Class 3 severe obesity with body mass index (BMI) of 40.0 to 44.9 in adult, unspecified obesity type, unspecified whether serious comorbidity present (HC) GC CHLAMYDIA TRACH PROBE Routine 04/04/2025 10:05 AM CDT Screening for STD (sexually transmitted disease) CBC W PLT NO DIFF Routine 04/04/2025 10: 01 AM CDT Acne vulgaris COMP METABOLIC PANEL Add On 04/04/2025 10:01 AM CDT Acne vulgaris LIPID PANEL W REFLEX MEASURED LDL Routine 04/04/2025 10:01 AM CDT Screening for cholesterol level HEMOGLOBIN A1C Routine 04/04/2025 10:01 AM CDT Screening for diabetes mellitus from Last 3 Months Results * (ABNORMAL) CBC WITH AUTO DIFFERENTIAL (06/16/2025 2:01 PM RECORD TESTER) WHITE BLOOD CELL COUNT 12.5(H) 3.8 - 10.8 Thousand/u L 06/16/2025 2:16 PM RECORD TESTER [facility] RED BLOOD CELL COUNT 5.75 4.20 - 5.80 Million/uL 06/16/2025 2:16 PM RECORD TESTER [facility] HEMOGLOBIN 16.3 13.2 - 17.1 g/dL 06/16/2025 2:16 PM RECORD TESTER [facility] HEMATOCRIT 48.8 38.5 - 50.0 % 06/16/2025 2:16 PM [facility] MCV 84.9 80.0 - 100.0 fL 06/16/2025 2:16 PM [facility] MCH 28.3 27.0 - 33.0 pg 06/16/2025 2:16 PM [facility] MCHC 33.4 32.0 - 36.0 g/dL 06/16/2025 2:16 PM RECORD TESTER [facility] Comment: For adults, a slight decrease in the calculated MCHC value (in the range of 30 to 32 g/dL) is most likely not clinically significant; however, it should be interpreted with caution in correlation with other red cell parameters and the patient's clinical condition. RDW 13.1 11.0 - 15.0 % 06/16/2025 2:16 PM RECORD TESTER [facility] PLATELET COUNT 345 140 - 400 Thousand/u L 06/16/2025 2:16 PM RECORD TESTER [facility] MPV 8.8 7.5 - 12.5 fL 06/16/2025 2:16 PM RECORD TESTER [facility] NEUTROPHILS 67.3 % 06/16/2025 2:16 PM RECORD TESTER [facility] LYMPHOCYTES 26.2 % 06/16/2025 2:16 PM RECORD TESTER [facility] MONOCYTES 3.7 % 06/16/2025 2:16 PM RECORD TESTER [facility] EOSINOPHILS 2.4 % 06/16/2025 2:16 PM RECORD TESTER [facility] BASOPHILS 0.4 % 06/16/2025 2:16 PM RECORD TESTER [facility] ABSOLUTE NEUTROPHILS 8413(H) 1500 - 7800 cells/uL 06/16/2025 2:16 PM RECORD TESTER [facility] ABSOLUTE LYMPHOCYTES 3275 850 - 3900 cells/uL 06/16/2025 2:16 PM RECORD TESTER [facility] ABSOLUTE MONOCYTES 463 200 - 950 cells/uL 06/16/2025 2:16 PM RECORD TESTER [facility] ABSOLUTE EOSINOPHILS 300 15 - 500 cells/uL 06/16/2025 2:16 PM RECORD TESTER [facility] ABSOLUTE BASOPHILS 50 0 - 200 cells/uL 06/16/2025 2:16 PM RECORD TESTER [facility] Blood BLOOD SPECIMEN / Unknown [facility] / Unknown 06/16/2025 2:01 PM RECORD TESTER 06/16/2025 2:02 PM RECORD TESTER Narrative [facility] - 06/16/2025 2:16 PM RECORD TESTER FASTING:NO FASTING: NO us Wanda Petit MD HEMATOLOGY Final Result Performing Organization Address [facility] Co de Phone Number [facility] [address] [address], [facility] [address] [place] [address], [address] [place] [address] * TSH WITH REFLEX (06/16/2025 2:01 PM RECORD TESTER) TSH W/REFLEX TO FT4 0.85 0.40 - 4.50 mIU/L 06/17/2025 4:28 AM RECORD TESTER [facility] Blood BLOOD SPECIMEN / Unknown [facility] / Unknown 06/16/2025 2:01 PM RECORD TESTER 06/16/2025 2:02 PM RECORD TESTER Narrative [facility] - 06/17/2025 4:28 AM RECORD TESTER FASTING:NO FASTING: NO Jennifer KENNEDY CHEMISTRY F inal Result Performing Organization Address [facility] Co de Phone Number [facility] [address] [address], * (ABNORMAL) VITAMIN D 25 (DEFICIENCY) (06/16/2025 2:01 PM RECORD TESTER) VITAMIN D,25-OH,TOTAL,IA 20(L) 30 - 100 ng/mL 06/17/2025 4:28 AM RECORD TESTER [facility] Comment: Vitamin D Status 25-OH Vitamin D: Deficiency: <20 ng/mL Insufficiency: 20 - 29 ng/mL Optimal: > or = 30 ng/mL For 25-OH Vitamin D testing on patients on D2-supplementation and patients for whom quantitation of D2 and D3 fractions is required, the QuestAssureD(TM) 25-OH VIT D, (D2,D3), LC/MS/MS is recommended: order code 60757 (patients >2yrs). See Note 1 Note 1 For additional information, please refer to http://education.FTAPI Software.ATG Access/faq/JED904 (This link is being provided for informational/ educational purposes only.) Blood BLOOD SPECIMEN / Unknown [facility] / Unknown 06/16/2025 2:01 PM RECORD TESTER 06/16/2025 2:02 PM RECORD TESTER Narrative [facility] - 06/17/2025 4:28 AM RECORD TESTER FASTING:NO FASTING: NO Jennifer KENNEDY SEND OUTS F inal Result Performing Organization Address [facility]/ZIP Co de Phone Number [facility] [address] [address], [place] [phone] * VITAMIN B12 (06/16/2025 2:01 PM RECORD TESTER) VITAMIN B12 532 200 - 1100 pg/mL 06/17/2025 4:28 AM RECORD TESTER [facility] Blood BLOOD SPECIMEN / Unknown [facility] / Unknown 06/16/2025 2:01 PM RECORD TESTER 06/16/2025 2:02 PM RECORD TESTER Narrative [facility] - 06/17/2025 4:28 AM RECORD TESTER FASTING:NO FASTING: NO Jennifer KENNEDY CHEMISTRY F inal Result Performing Organization Address [facility] de Phone Number [facility] [address] [address], [place] [phone] * (ABNORMAL) LIPID PANEL (06/16/2025 2:01 PM RECORD TESTER) CHOLESTEROL, TOTAL 212(H) <200 mg/dL 06/17/2025 3:03 AM RECORD TESTER [facility] TRIGLYCERIDES 239(H) <150 mg/dL 06/17/2025 3:03 AM RECORD TESTER [facility] Comment: If a non-fasting specimen was collected, consider repeat triglyceride testing on a fasting specimen if clinically indicated. Shayy et al. J. of Clin. Lipidol. 2015;9:129-169. HDL CHOLESTEROL 41 > OR = 40 mg/dL 06/17/2025 3:03 AM RECORD TESTER [facility] NON HDL CHOLESTEROL 171(H) <130 mg/dL (calc) 06/17/2025 3:03 AM RECORD TESTER [facility] Comment: For patients with diabetes plus 1 major ASCVD risk factor, treating to a non-HDL-C goal of <100 mg/dL (LDL-C of <70 mg/dL) is considered a therapeutic option. CHOL/HDLC RATIO 5.2(H) <5.0 (calc) 06/17/2025 3:03 AM RECORD TESTER [facility] LDL-CHOLESTEROL 132(H) mg/dL (calc) 06/17/2025 3:03 AM RECORD TESTER [facility] Comment: Reference range: <100 Desirable range <100 mg/dL for primary prevention; <70 mg/dL for patients with CHD or diabetic patients with > or = 2 CHD risk factors. LDL-C is now calculated using the Altagracia calculation, which is a validated novel method providing better accuracy than the Friedewald equation in the estimation of LDL-C. Sharan SS et al. HOLA. 2013;310(19): 0020-3792 (http://education.kaufDA/faq/ZMT954) Blood BLOOD SPECIMEN / Unknown [facility] / Unknown 06/16/2025 2:01 PM RECORD TESTER 06/16/2025 2:02 PM RECORD TESTER Narrative [facility] - 06/17/2025 3:03 AM RECORD TESTER FASTING:NO FASTING: NO Wanda Petit MD CHEMISTRY Final Result [facility] [address] [address], * COMP METABOLIC PANEL (06/16/2025 2:01 PM RECORD TESTER) Only the most recent of2 resultswithin the time period is included. SODIUM 138 135 - 146 mmol/L 06/17/2025 3:03 AM RECORD TESTER [facility] POTASSIUM 4.5 3.5 - 5.3 mmol/L 06/17/2025 3:03 AM RECORD TESTER [facility] CHLORIDE 104 98 - 110 mmol/L 06/17/2025 3:03 AM RECORD TESTER [facility] CARBON DIOXIDE 26 20 - 32 mmol/L 06/17/2025 3:03 AM RECORD TESTER [facility] GLUCOSE 85 65 - 139 mg/dL 06/17/2025 3:03 AM RECORD TESTER [facility] Comment: Non-fasting reference interval CALCIUM 9.9 8.6 - 10.3 mg/dL 06/17/2025 3:03 AM RECORD TESTER [facility] CREATININE 0.82 0.60 - 1.24 mg/dL 06/17/2025 3:03 AM RECORD TESTER [facility] BUN/CREATININE RATIO SEE NOTE: 6 - 22 (calc) 06/17/2025 3:03 AM RECORD TESTER [facility] Comment: Not Reported: BUN and Creatinine are within reference range. EGFR 123 > OR = 60 mL/min/1. 73m2 06/17/2025 3:03 AM RECORD TESTER [facility] ALBUMIN 4.8 3.6 - 5.1 g/dL 06/17/2025 3:03 AM RECORD TESTER [facility] PROTEIN, TOTAL 7.6 6.1 - 8.1 g/dL 06/17/2025 3:03 AM RECORD TESTER [facility] BILIRUBIN, TOTAL 0.3 0.2 - 1.2 mg/dL 06/17/2025 3:03 AM RECORD TESTER [facility] ALKALINE PHOSPHATASE 70 36 - 130 U/L 06/17/2025 3:03 AM RECORD TESTER [facility] ALT 35 9 - 46 U/L 06/17/2025 3:03 AM RECORD TESTER [facility] AST 22 10 - 40 U/L 06/17/2025 3:03 AM RECORD TESTER [facility] UREA NITROGEN (BUN) 12 7 - 25 mg/dL 06/17/2025 3:03 AM RECORD TESTER [facility] GLOBULIN 2.8 1.9 - 3.7 g/dL (calc) 06/17/2025 3:03 AM RECORD TESTER [facility] ALBUMIN/GLOBULI N RATIO 1.7 1.0 - 2.5 (calc) 06/17/2025 3:03 AM RECORD TESTER [facility] Blood BLOOD SPECIMEN / Unknown [facility] / Unknown 06/16/2025 2:01 PM RECORD TESTER 06/16/2025 2:02 PM RECORD TESTER Narrative [facility] - 06/17/2025 3:03 AM RECORD TESTER FASTING:NO FASTING: NO Wanda Petit MD CHEMISTRY Final Result [facility] [place] [id number] [place] [address], * GC CHLAMYDIA TRACH PROBE (04/04/2025 10:05 AM CDT) CHLAMYDIA PROBE Negative 10:08 PM CDT [facility] TRAL LABORATORY N GONORRHOEAE PROBE Negative 04/04/2025 10:08 PM CDT [facility] TR[facility] LABORATORY Other URINE SPECIMEN / Unknown Non-Blood / Unknown 04/04/2025 10:05 AM CDT 04/04/2025 11:49 AM CDT Pako KENNEDY MICROBIOLOGY Final Resul t [facility] [address] [place] [address], * HEMOGLOBIN A1C (04/04/2025 10:01 AM CDT) HEMOGLOBIN A1C 5.4 <5.7 % 04/05/2025 3:33 AM CDT [facility] Comment: For the purpose of screening for the presence of diabetes: <5.7% Consistent with the absence of diabetes 5.7-6.4% Consistent with increased risk for diabetes (prediabetes) > or =6.5% Consistent with diabetes This assay result is consistent with a decreased risk of diabetes. Currently, no consensus exists regarding use of hemoglobin A1c for diagnosis of diabetes in children. According to [place] Diabetes Association (ADA) guidelines, hemoglobin A1c <7.0% represents optimal control in non- diabetic patients. Different metrics may apply to specific patient populations. Standards of Medical Care in Diabetes(ADA). Blood BLOOD SPECIMEN / Unknown [facility] / Unknown 04/04/2025 10:01 AM CDT 04/04/2025 10:02 AM CDT Pako KENNEDY CHEMISTRY Final Resul t [facility] [address] [address], [place] [phone] * (ABNORMAL) LIPID PANEL W REFLEX MEASURED LDL (04/04/2025 10:01 AM CDT) CHOLESTEROL, TOTAL 197 <200 mg/dL 04/05/2025 3:29 AM CDT [facility] TRIGLYCERIDES 150(H) <150 mg/dL 04/05/2025 3:29 AM CDT [facility] HDL CHOLESTEROL 44 > OR = 40 mg/dL 04/05/2025 3:29 AM CDT [facility] NON HDL CHOLESTEROL 153(H) <130 mg/dL (calc) 04/05/2025 3:29 AM CDT [facility] Comment: For patients with diabetes plus 1 major ASCVD risk factor, treating to a non-HDL-C goal of <100 mg/dL (LDL-C of <70 mg/dL) is considered a therapeutic option. CHOL/HDLC RATIO 4.5 <5.0 (calc) 04/05/2025 3:29 AM CDT [facility] LDL-CHOLESTEROL 127(H) mg/dL (calc) 04/05/2025 3:29 AM CDT [facility] Comment: Reference range: <100 Desirable range <100 mg/dL for primary prevention; <70 mg/dL for patients with CHD or diabetic patients with > or = 2 CHD risk factors. LDL-C is now calculated using the Altagracia calculation, which is a validated novel method providing better accuracy than the Friedewald equation in the estimation of LDL-C. Sharan SS et al. HOLA. 2013;310(19): 2968-1924 (http://education.FTAPI Software.ATG Access/faq/FYQ844) Blood BLOOD SPECIMEN / Unknown [facility] / Unknown 04/04/2025 10:01 AM CDT 04/04/2025 10:02 AM CDT us Pako KENNEDY CHEMISTRY Final Resul t [facility] [address] [place] [address], * (ABNORMAL) CBC W PLT NO DIFF (04/04/2025 10:01 AM CDT) WHITE BLOOD CELL COUNT 7.5 3.8 - 10.8 Thousand/ uL 04/06/2025 12:34 AM CDT [facility] RED BLOOD CELL COUNT 5.85(H) 4.20 - 5.80 Million/u L 04/06/2025 12:34 AM CDT [facility] HEMOGLOBIN 16.7 13.2 - 17.1 g/dL 04/06/2025 12:34 AM CDT [facility] HEMATOCRIT 52.6(H) 38.5 - 50.0 % 04/06/2025 12:34 AM CDT [facility] MCV 89.9 80.0 - 100.0 fL 04/06/2025 12:34 AM CDT [facility] MCH 28.5 27.0 - 33.0 pg 04/06/2025 12:34 AM CDT [facility] MCHC 31.7(L) 32.0 - 36.0 g/dL 04/06/2025 12:34 AM CDT [facility] Comment: For adults, a slight decrease in the calculated MCHC value (in the range of 30 to 32 g/dL) is most likely not clinically significant; however, it should be interpreted with caution in correlation with other red cell parameters and the patient's clinical condition. RDW 13.4 11.0 - 15.0 % 04/06/2025 12:34 AM CDT [facility] PLATELET COUNT 333 140 - 400 Thousand/ uL 04/06/2025 12:34 AM CDT [facility] MPV 10.6 7.5 - 12.5 fL 04/06/2025 12:34 AM CDT [facility] Blood BLOOD SPECIMEN / Unknown [facility] / Unknown 04/04/2025 10:01 AM CDT 04/04/2025 10:02 AM CDT us Wanda Petit MD HEMATOLOGY Final Result [facility] [address] [address] [address], [place] [phone] from Last 3 Months Insurance BLUE CROSS OF NON-MA-ITS Care Teams Truck Sales Representative Relationship Specialty [place] [address] [place], [place] [phone] PCP - General Physician Tip Scourer 03/17/[address] [facility] [place], [place] [phone] Utility System Operator 05/31/25 Jennifer Bear PA [address] [place], [place] [phone] Physician Tip Scourer 05/29/25
--- OUTSIDE RECORDS SUMMARY | 2025-06-19 08:48 | XMS_ITS | Encounter Summary ---
Author Organization [facility] Address [address] [place] [address] Care Team Providers Care Engagement Executive Name Role Phone No Primary/Referring, Phy Primary Care Provider Unavailable Encounter Details Date Type Department Care Team (Late st Contact Info) Description 10/21/2017 Scanned History External to Transferred Record, Provider [facility] Social History Tobacco Use Types Packs/Day Years [...] on filedocumented in this encounter Care Teams Engagement Executive Relationship Specialty Start Date End Date No Primary/Referring, Phy PCP - General 05/16/19 documented as of this encounter
--- NOTE | 2025-06-19 09:54 | ED.GENADULT ---
HPI - General Adult General Chief complaint: Nausea/Vomiting Stated complaint: Vomitting Time Seen by Provider: 06/19/25 09:31 Source: patient Mode of arrival: ambulatory Limitations: no limitations History of Present Illness HPI narrative: 29-year-old male presenting today with vomiting. Patient states that he has been taking Tirzepitide for the last 6 weeks. The last 3 weeks have been very difficult and the last 2 weeks have been were still with constant vomiting. He has abdominal pain on and off, no pain currently. He has diarrhea, in the last 24 hours is probably had 8 bowel movement. Denies any blood in his stool or vomitus. Patient states that he did increase his dose a few weeks ago when all this got worse. He states he is unable to keep anything down at all for about 48 hours. Past medical history significant for obesity. Related Data Home Medications ?Medication ?Instructions ?Recorded ?Confirmed isotretinoin 40 mg capsule 40 mg PO BID 06/19/25 06/19/25 (Amnesteem) Allergies Allergy/AdvReac Type Severity Reaction Status Date / Time No Known Drug Allergies Allergy Verified 02/11/25 19:56 Review of Systems Status of ROS: Reports: 10 or more systems reviewed and unremarkable except as noted in History and below Exam Narrative: Exam Narrative: Obese, well-developed patient in no acute distress. Alert and oriented. Answers questions appropriately. Mood and affect are appropriate. Thoughts are goal oriented and rational. No tangential or magical thinking noted. Patient speaks in full sentences without needing to catch his breath. HEENT: Normocephalic atraumatic. Pupils are equally round reactive to light. Extraocular muscles are intact. Conjunctivae are moist without any icterus noted. Slightly dry mucous membranes. Posterior pharynx is normal. Cardiovascular: Tachycardic. Lungs: Clear to auscultation bilaterally no wheezes rhonchi or rales are appreciated. Patient takes deep breaths without any discomfort. Abdomen: Soft and nontender nondistended with normal bowel sounds. No guarding or rebound. Extremities: Bilateral lower extremities are without edema. Skin: Well perfused without any obvious rashes. Const: Vital Signs, click to edit/add: Vital Signs - 24 hr 06/19/25 08:50 06/19/25 09:31 06/19/25 09:32 Temperature 96.6 F L Pulse Rate 108 H 108 H Pulse Rate [Pulse Oximeter] 122 H Respiratory Rate 16 16 Blood Pressure 117/79 Blood Pressure [Ri ght Upper Arm] 116/70 Pulse Oximetry 96 94 94 Oxygen Delivery Me thod Room Air 06/19/25 09:33 06/19/25 09:45 06/19/25 10:00 Temperature Pulse Rate 110 H 106 H 104 H Pulse Rate [Pulse Oximeter] Respiratory Rate Blood Pressure Blood Pressure [Ri ght Upper Arm] Pulse Oximetry 95 95 83 L Oxygen Delivery Me thod 06/19/25 10:01 06/19/25 10:07 06/19/25 10:15 Temperature Pulse Rate 108 H 93 Pulse Rate [Pulse Oximeter] Respiratory Rate 16 10 L Blood Pressure 91/71 Blood Pressure [Ri ght Upper Arm] Pulse Oximetry 96 95 96 Oxygen Delivery Me thod 06/19/25 10:30 06/19/25 10:31 06/19/25 10:32 Temperature Pulse Rate 98 103 H 98 Pulse Rate [Pulse Oximeter] Respiratory Rate 9 L 16 18 Blood Pressure 118/82 Blood Pressure [Ri ght Upper Arm] Pulse Oximetry 95 96 96 Oxygen Delivery Me thod 06/19/25 10:45 Temperature 97.6 F Pulse Rate 94 Pulse Rate [Pulse Oximeter] Respiratory Rate 21 Blood Pressure Blood Pressure [Ri ght Upper Arm] Pulse Oximetry 98 Oxygen Delivery Me thod Course Course ED Course: IV established and patient is given L of normal saline and Zofran. Differential diagnoses include side effects from medications, pancreatitis, acute kidney injury, gastroenteritis. Blood work unremarkable. Patient's tachycardia normalized after 2 L of normal saline. He was feeling better. Vital Signs Vital signs: Initial Vital Signs Temperature 96.6 F L 06/19/25 08:50 Temperature Source Temporal Artery Scan 06/19/25 08:50 Pulse Rate 122 H 06/19/25 08:50 Respiratory Rate 16 06/19/25 08:50 Blood Pressure 116/70 06/19/25 08:50 Blood Pressure Mean 85 06/19/25 08:50 Blood Pressure Position Sitting 06/19/25 08:50 Pulse Oximetry 96 06/19/25 08:50 Oxygen Delivery Method Room Air 06/19/25 08:50 Vital Signs Temperature 96.6 F L 06/19/25 08:50 Pulse Rate 122 H 06/19/25 08:50 Respiratory Rate 16 06/19/25 08:50 Blood Pressure 116/70 06/19/25 08:50 Pulse Oximetry 96 06/19/25 08:50 Oxygen Delivery Method Room Air 06/19/25 08:50 Temperature 97.6 F 06/19/25 10:45 Pulse Rate 94 06/19/25 10:45 Respiratory Rate 21 06/19/25 10:45 Blood Pressure 118/82 06/19/25 10:31 Pulse Oximetry 98 06/19/25 10:45 Oxygen Delivery Method Room Air 06/19/25 08:50 Medications Administered Medications: Discontinued Medications Generic Name Dose Route Start Last Admin Trade Name Freq PRN Reason Stop Dose Admin Sodium Chloride 1,000 mls @ 1,000 mls/hr 06/19/25 10:00 06/19/25 10:40 0.9 % Sodium Chloride 1000 Ml IV 06/19/25 10:59 Infused .Q1H BLAIR Infusion Sodium Chloride 1,000 mls @ 1,000 mls/hr 06/19/25 10:30 06/19/25 10:40 0.9 % Sodium Chloride 1000 Ml IV 06/19/25 11:29 1,000 mls/hr .Q1H BLAIR Administration Ondansetron HCl 4 mg 06/19/25 09:53 06/19/25 10:03 Ondansetron 2 Mg/Ml Inj IVP 06/19/25 09:54 4 mg ONCE ONE Administration Medical Decision Making MDM Narrative Medical decision making narrative: 29-year-old male with vomiting diarrhea-side effects from Tirzepitide. Patient will follow-up with his primary doctor. Lab Data Lab results reviewed: Yes I reviewed the patient's lab results Labs: Lab Results 06/19/25 Range/Units 09:23 WBC 13.35 H (4.50-11.00) K/uL RBC 5.80 (4.30-5.90) m/uL Hgb 16.6 (13.5-17.5) gm/dL Hct 49.2 (37.0-53.0) % MCV 85 (80-100) fL MCH 29 (26-34) pg MCHC 34 (32-36) gm/dL RDW Coeff of [place] 12.8 (11.5-15.5) % Plt Count 337 (140-440) K/uL Neut % (Auto) 76.6 H (42.0-72.0) % Lymph % (Auto) 13.0 L (20-44) % [place] % (Auto) 6.8 (0.0-11.0) % Eos % (Auto) 3.2 (0.0-7.0) % Baso % (Auto) 0.2 (0.0-3.0) % Neut # (Auto) 10.20 H (1.7-7.0) K/uL Lymph # (Auto) 1.70 (0.90-2.90) K/uL [place] # (Auto) 0.90 (0.00-0.90) K/UL Eos # (Auto) 0.40 (0.00-0.50) K/uL Baso # (Auto) 0.00 (0.00-0.30) K/uL Abs Immat Gran (auto) 0.00 (0.00-0.30) K/uL Imm/Tot Granulo (auto) 0.2 % Sodium 136 (135-149) mmol/L Potassium 4.3 (3.6-5.1) mmol/L Chloride 100 (96-114) mmol/L Carbon Dioxide 23 (20-32) mmol/L Anion Gap 13 (7-15) mEq/L BUN 11 (5-24) mg/dL Creatinine 0.8 (0.5-1.5) mg/dL Estimated Creat Clear 152.24 Estimated GFR 124 ml/min Glucose 98 (60-115) mg/dL Calcium 9.3 (8.4-10.6) mg/dL Total Bilirubin 1.0 (0.1-1.5) mg/dL Direct Bilirubin 0.5 (0.0-0.5) mg/dL AST 33 (12-35) U/L ALT 42 (4-50) U/L Alkaline Phosphatase 64 (40-150) U/L Total Protein 7.9 (6.0-8.3) g/dL Albumin 4.8 (3.3-5.0) g/dL Lipase 45 (23-300) U/L Discharge Plan Discharge Clinical Impression: Acute vomiting, Diarrhea Patient Disposition: Home, Self-Care Condition: Stable Additional Instructions: Stop taking Zepbound. Follow-up with your primary care provider this week or next week. Return to the ER if you are unable tolerate fluids over the next 2 days. Prescriptions: No Action isotretinoin [Amnesteem] 40 mg capsule 40 mg PO BID Follow Up/Referrals: Provider,Not a Local [Primary Care Provider, Family Practice] Stand Alone Forms: Offline Media Info Instructions
[2025-06-19 10:02] LABS: Hematocrit* 49.2 % (37.0-53.0); Hemoglobin* 16.6 gm/dL (13.5-17.5); Mean Corpuscular HGB Conc 34 gm/dL (32-36); Mean Corpuscular Hemoglobin 29 pg (26-34); Mean Corpuscular Volume 85 fL (80-100); RDW Coefficient of Variation % 12.8 % (11.5-15.5); Red Blood Count* 5.80 m/uL (4.30-5.90); White Blood Count* 13.35 K/uL (4.50-11.00)
[2025-06-19 10:03] LABS: Immature Granulocytes Pct Auto 0.2 %
[2025-06-19] MEDS: ONDANSETRON 2 MG/ML inj 4 MG IVP (10:03)
[2025-06-19 10:05] LABS: Immature Granulocytes Abs Auto 0.00 K/uL (0.00-0.30); Lymphocytes Absolute Auto 1.70 K/uL (0.90-2.90); Slide Review Reflex No
[2025-06-19 10:15] LABS: Albumin* 4.8 g/dL (3.3-5.0); Chloride* 100 mmol/L (96-114); Potassium* 4.3 mmol/L (3.6-5.1); Sodium* 136 mmol/L (135-149)
[2025-06-19 10:18] LABS: Alanine Aminotransferase* 42 U/L (4-50); Alkaline Phosphatase* 64 U/L (40-150); Aspartate Amino Transferase* 33 U/L (12-35); Bilirubin Direct* 0.5 mg/dL (0.0-0.5); Bilirubin Total* 1.0 mg/dL (0.1-1.5); Blood Urea Nitrogen* 11 mg/dL (5-24); Carbon Dioxide* 23 mmol/L (20-32); Creatinine* 0.8 mg/dL (0.5-1.5); Est. Creatinine Clearance* 152.24; Estimated Glomerular Filt Rate 124 ml/min; Total Protein* 7.9 g/dL (6.0-8.3)
[2025-06-19 10:19] LABS: Anion Gap 13 mEq/L (7-15); Calcium* 9.3 mg/dL (8.4-10.6); Glucose* 98 mg/dL (60-115)
== END 2025-06-19 11:44 | disposition home or self-care (01) ==
PROVIDERS: Emergency Provider Family Medicine
DX: R11.10 Vomiting, unspecified (principal); R19.7 Diarrhea, unspecified; T46.6X5A Adverse effect of antihyperlipidemic and antiarteriosclerotic drugs, initial encounter
CPT/HCPCS: 36415; 80048; 80076; 83690; 85025; 94761; 96374; 99284; J2405; J7030